=== PATIENT | female | born 1960 | race Caucasian/White ===

== ENCOUNTER 2016-10-27 13:18 | Emergency (ER) | payer BC ==
--- OUTSIDE RECORDS SUMMARY | 2016-10-27 14:05 | XMS REPORT | Continuity of Care Document ---
:1960 Author Organization [email or web address] [place] [address] Care Team Providers Name Role Phone Kuldip Madden Primary Care Provider [phone] Source Comments This disclosure is being made pursuant to the [employer] program and contain all information available regarding this patient.[email or web address] Active Allergies and Adverse Reactions No Known Allergies Current Medications Be aware that medications may not be up to date as of this document. Alwaysverify current medications with the patient. Prescription Sig. Disp. Refills Start Date End Date Status polyvinyl alcohol-povidone Apply to eye. Active (REFRESH) 1.4-0.6 % ophthalmic solution sodium chloride (GEORGETTE 128) Apply 5 % to eye. Active 5 % ophthalmic solution ocular lubricant Apply 5 % to eye. Active (ARTIFICIAL TEARS) OINT valsartan-hydrochlorothiaz Take 1 tablet by Active rod (DIOVAN HCT) 160-12.5 mouth daily. MG per tablet amLODIPine (NORVASC) 5 MG Take 5 mg by mouth Active tablet daily. nebivolol (BYSTOLIC) 5 MG Take 5 mg by mouth Active tablet daily. gabapentin (NEURONTIN) 300 Take 300 mg by Active MG capsule mouth 3 (three) times daily. metaxalone (SKELAXIN) 800 Take 400 mg by Active MG tablet mouth 2 (two) times daily. levothyroxine (SYNTHROID, Take 25 mcg by Active LEVOTHROID) 25 MCG tablet mouth every morning. Active Problems Not on file Social History Tobacco Use Types Packs/Day Years Used Date Never Smoker Smokeless Tobacco: Never Used Plan of Care Date Type Specialty Providers Description 04/06/2017 Appointment Ophthalmology Jonathan Arango MD [address] [place] [address] [phone] (Fax) Health Maintenance Due Date Last Done Comments Tetanus/Pertussis (1 - Tdap) 1977 Pap Smear 11/13/1979 Colonoscopy 2008 Mammogram 2008 Well Adult Visit 2008 Influenza Immunization (#1) 2016 Results from Last 3 Months Not on file
--- OUTSIDE RECORDS SUMMARY | 2016-10-27 14:05 | XMS REPORT | Continuity of Care Document ---
:1960 Author Organization [facility] ([facility]) Address [address] [place] [address] Phone [phone] Care Team Providers Name Role Phone MccammonReggieIvone Primary Care Provider [phone] Source Comments This disclosure is being made pursuant to the Care Everywhere program, applicable federal and state laws, and may not contain all informaitonavailable regarding this patient.[facility] ([facility]) Active Allergies and Adverse Reactions No Known Allergies Current Medications Prescription Sig. Disp. Refills Start Date End Date Status metaxalone 800 mg tablet Take 400 mg by Active mouth 2 times daily. nebivolol (BYSTOLIC) 10 Take 10 mg by mouth Active mg tablet daily. gabapentin 300 mg capsule 3 times daily. Active 900mg every morning, 600mg every noon, 900mg at bedtime levothyroxine 75 mcg Take 75 mcg by Active tablet mouth every morning before breakfast. valsartan-hydrochlorothia Take 1 tablet by Active zide 320-25 mg per tablet mouth daily. potassium chloride 10 mEq Take 10 mEq by Active XR capsule mouth daily. Active Problems Problem Noted Date Abnormal findings on radiological examination of gastrointestinal tract 2014 Gastritis 09/24/2014 Postoperative wound seroma 09/15/2014 History of [id number] grade 3 endometrial cancer 09/07/2014 Essential hypertension 09/05/2014 Preop cardiovascular exam 09/05/2014 Severe obesity (BMI >=40) 09/05/2014 Type 2 diabetes mellitus without complication 09/05/2014 Hypothyroidism 09/05/2014 High body mass index 08/16/2014 Morbid obesity 08/16/2014 Most Recent Encounters Date Type Specialty Providers Description 08/15/2016 Office Visit [facility] E[facility] Ornelas, Dx: Encounter for MD follow-up surveillance Clinic, Wireless Manager Onc of endometrial cancer Advanced Practice (Primary Dx) Provider 08/08/2016 Office Visit [facility] Ornelas, Subj: Questionnaire MD Submission Clinic, Wireless Manager Onc Advanced Practice Provider Immunizations Name Dates Previously Given Next Due Influenza, unspecified 03/22/2014 Social History Tobacco Use Types Packs/Day Years Used Date Never Smoker Smokeless Tobacco: Never Used Tobacco Cessation:Counseling Given: Yes Comments: Alcohol Use Drinks/Week oz/Week Comments No Last Filed Vital Signs Vital Sign Reading Time Taken Blood Pressure 136/59 08/15/2016 11:22 AM [employer]CRE[employer]TER Pulse 83 08/15/2016 11:22 AM [employer]CRE[employer]TER Temperature 37 C (98.6 F) 08/15/2016 11:22 AM [employer]DSCREEN FITTER Respiratory Rate 16 08/15/2016 11:22 AM [employer]DSCRE[employer]TER Height 1.575 m (5' 2.01") 08/15/2016 11:22 AM [employer]DSCRE[employer]TER Weight 115.85 kg (255 lb 6.5 oz) 08/15/2016 11:22 AM [employer]DSCRE[employer]TER Body Mass Index 46.7 08/15/2016 11:22 AM WINDSCREEN FITTER Oxygen Saturation 93% 08/15/2016 11:22 AM WINDSCREEN FITTER Plan of Care Date Type Specialty Providers Description 02/06/2017 Appointment [facility] Erick Ornelas MD [address] [place], [place] [id number] [phone] (Fax) Chief Comp: Patient Clinic, Wireless Manager Onc Advanced Practice Provider Reported Reason For Visit Health Maintenance Due Date Last Done Comments HCV Screening 1960 Hepatitis B Vaccine (1 of 3 - Primary Series) 1960 Tdap Vaccine 1969 DIABETIC: Cholesterol 1976 Diabetic: Hdl 1976 Diabetic: Ldl 1976 DIABETIC: Microalbumin 1976 DIABETIC: Triglycerides 1976 MMR Vaccine 1976 Td Vaccine 1976 Pneumococcal Vaccine (1 of 3 - PCV13) 1977 Cervical Cancer Screening 1988 Mammogram 1998 Colonoscopy 11/11/2008 DIABETIC: Foot Exam 09/05/2014 DIABETIC: Retinal Eye Exam 09/05/2014 DIABETIC: Hemoglobin A1C 03/08/2015 09/05/2014 Influenza Vaccine: Seasonal (#1) 01/21/2016 03/22/2014 Results from Last 3 Months Not on file
--- NOTE | 2016-10-27 15:20 | ERNOTE ---
Lower Extremity HPI - Narrative Date of Service: 10/27/16 - General Lower Extremities Pain: heel: right Time Seen by Provider: 10/27/16 13:37 Source: patient Exam Limitations: no limitations - Immun/Allergies/Home Medications Immunizations: IMMUNIZATION HX History of Influenza Vaccine No Hx Pneumococcal Vaccination No Allergies/Adverse Reactions: Allergies Allergy/AdvReac Type Severity Reaction Status Date / Time No Known Allergies Allergy Unverified 10/27/16 13:28 Home Medications: HOME MEDICATIONS Gabapentin [Neurontin] 900 mg PO TID 10/27/16 [Last Taken Unknown] Levothyroxine Sodium [Tirosint] 25 mcg PO DAILY 10/27/16 [Last Taken Unknown] Metaxalone 400 mg PO BID 10/27/16 [Last Taken Unknown] Nebivolol HCl [Bystolic] 5 mg PO DAILY 10/27/16 [Last Taken Unknown] Valsartan/Hydrochlorothiazide [Diovan Hct 320-12.5 mg Tab] 1 each PO DAILY 10/27 [Last Taken Unknown] metFORMIN HCL [Metformin HCl ER] 500 mg PO DAILY 10/27/16 [Last Taken Unknown] - History of Present Illness Narrative: patient presents to the ED for right heel pain. She relates that on thursday she developed pain right heel that moved up into her calf. She denies trauma. She relates she saw her doctor and she was sent here to make sure she did not have a blood clot. She denies trauma. No fever. She has never really had pain like this before. Worse with palpation and weight bearing. No acute CP or SOB , no abdominal pain. Denies focal weakness. No joint pains Occurred: other - Thursday Method of Injury: Reports: other - none Modifying Factors - (Improves): Reports: rest Modifying Factors - (Worsens): Reports: other - walking Associated Symptoms: Denies: snapping, sensory loss Subsequent Symptoms: Denies: sensory loss, numbness Prior Treament: Reports: other - sent here after seeing her doctor Review of Systems - Review of Systems Constitutional: Absent: fever Respiratory: Absent: shortness of breath Cardiology: Absent: chest pain Gastrointestinal/Abdominal: Absent: abdominal pain Skin: Absent: rash Neurological: Absent: weakness - Patient's Past Medical History Patient History - Medical: Hypothyroidism, Migraines Patient History - Cardiac/Respiratory: Hypertension, Hyperlipidemia Patient History - Cancer: Endometrial Patient History - Surgical Procedures: Back Surgery Patient History - Other: None - Social History Living Situations: home Psych History: No pertinent hx Alcohol Use: none Drug Use: none - Immunizations Hx Pneumococcal Vaccination: No History of Influenza Vaccine: No Physical Exam - Physical Exam General Appearance: Present: alert, no apparent distress Eye Exam: Normal inspection: bilateral, PERRL: bilateral Ears, Nose, Throat: Present: normal ENT inspection Neck: Present: normal inspection Respiratory: Present: no respiratory distress, normal breath sounds, no accessory muscle use, lungs clear Cardiovascular/Chest: Present: regular rate, rhythm, normal peripheral pulses Peripheral Pulses: N=norm/S=strong/W=weak/B=bound/A=absent: Dorsalis-pedis (R): Normal Gastrointestinal/Abdominal: Present: normal bowel sounds, nontender, soft Extremity Exam: Present: other - Strong DP pulse. There is no specific foot tenderness. She has some tendenrss on the heel and the distal gastroc. She has good dorsi and plantar flexion, I do not find clear evidence of Achilles tendon rupture at this time. She has a hard time positioning for snyder testing so I had her bend her knee off the bed and a modified Snyder test seems to show the Achilles intact. There is no warmth or redness. I find no compartment syndrome. I find no suggestion of knee tendenrss. or hip tendenrss. I find no suggestion of septic arthritis or infectious process. Nothing here that localizes to a single joint. Skin Exam: Present: other - no cellulitis seen ED Progress - Vital Signs Patient's Vital Signs:: I have reviewed the patient's vital signs. Vital Signs: Vital Signs 10/27/16 13:22 Temperature 36.4 C L Pulse Rate 71 Respiratory 12 Rate Blood Pressure 159/74 O2 Sat by Pulse 97 Oximetry - X-Ray X-Ray #1 X-Ray: ankle Interpretation: Reviewed by me X-ray Comments: I reviewed official radiology report - CT/Ultrasound CT/Ultrasound Narrative: US, no DVT. - Progress/Reassessment Chief Complaint: Foot Injury/Pain Progress Note-Subjective: 10/27/16 15:16 No suggestion of septic arthritis, cellulitis, vascular deficit, acute neuro deficit, compartment syndrome, DVT or other life or limb threat. No clear tenon injury. Crutches, intiinflammatories, follow-up 2 days PCP. She feels like going home. I discussed warning signs and reasons to return as well as the need for close f/u. Departure Clinical Impression: Leg pain - Departure Disposition: Home self-care Condition: Stable Additional Instructions: rest. Elevate. Crtuches. Ibuprofen as directed. Follow-up with your primary doctor in 2 days fir a re-check. Return for increased pain, fever, redness, swelling or if your condition worsens or changes in any way. Referrals: Ivone Hackett CNP [Primary Care Provider] -
[2016-10-27 15:27] VITALS: BP 149/76
== END 2016-10-27 15:25 | disposition home or self-care (01) ==
LOC: ER 13:18
DX: M79.604 Pain in right leg (principal); Z85.42 Personal history of malignant neoplasm of other parts of uterus; E03.9 Hypothyroidism, unspecified; I10 Essential (primary) hypertension; E78.5 Hyperlipidemia, unspecified